=== PATIENT | male | born 1995 | race Caucasian/White ===

== ENCOUNTER 2020-03-30 22:47 | Emergency (ER) | payer SELFPAY ==
[~2020-03-30] VITALS: Ht 177.8 cm; Wt 79.4 kg
[~2020-03-30 22:47] MED LIST: IBUPROFEN600 MG ORAL
[2020-03-30 22:53] VITALS: BP 137/88
--- NOTE | 2020-03-30 22:54 | Emergency Room Report ---
History of Present Illness General Chief Complaint: To Be Triaged Source: Patient Present Illness HPI Is a 25-year-old male with no past medical history. He presents with chief complaint of medical clearance from police [employer]. When being arrested, he started complaining of shoulder pain and wrist pain after being arrested. He said the handcuffs is tight and he was pushed down. He complaining of pain in that area. No other trauma. A second complaint was that he was exposed to COVID-19. He said that he was in a hotel room with a friend who was tested positive 2 days ago. He has no symptoms. Allergies: Coded Allergies: No Known Allergies (Unverified , 07/07/15) COVID-19 Screening Contact w/high risk pt: No Recent Travel to affected area: No Experienced COVID-19 symptoms?: No Patient History Past Medical History: see triage record, old chart reviewed Past Surgical History: none Pertinent Family History: none Social History: Denies: smoking Immunizations: other Reviewed Nursing Documentation: PMH: Agreed; PSxH: Agreed Review of Systems Eye: Denies: eye pain, blurred vision ENT: Denies: ear pain, nose congestion, throat swelling Respiratory: Denies: cough, shortness of breath Cardiovascular: Denies: chest pain, palpitations Gastrointestinal: Denies: abdominal pain, diarrhea, nausea, vomiting Musculoskeletal: Reports: joint pain; Denies: back pain Skin: Denies: rash Neurological: Denies: headache, numbness Endocrine: Denies: increased thirst, increased urine Hematologic/Lymphatic: Denies: easy bruising All Other Systems: negative except mentioned in HPI Physical Exam Sp02 EP Interpretation: reviewed, normal General Appearance: well appearing, no apparent distress, alert Head: normocephalic, atraumatic Eyes: bilateral eye PERRL, bilateral eye EOMI ENT: hearing grossly normal, normal pharynx Neck: full range of motion, supple, no meningismus Respiratory: chest non-tender, lungs clear, normal breath sounds Cardiovascular #1: regular rate, rhythm, no murmur Gastrointestinal: normal bowel sounds, non tender, no mass, no organomegaly, no bruit, non-distended Musculoskeletal: back normal, normal range of motion, gait/station normal Psychiatric: mood/affect normal Medical Decision Making Diagnostic Impression: Primary Impression: Arthralgia Qualified Codes: M25.531 - Pain in right wrist; M25.532 - Pain in left wrist Additional Impression: Exposure to COVID-19 virus ER Course Patient presents with arthralgia. See no trauma. There is no evidence of any deformity. Patient has no symptoms of Covid. I see no need for testing. Status: unchanged Disposition: LAW ENFORCEMENT IN CUST Condition: Stable Additional Instructions: Follow-up with your doctor in 7 days. Return if worse. Lalo Carrasquillo MD Mar 30, 2020 22:53
[2020-03-30 23:00] VITALS: BP 132/74
== END 2020-03-30 23:00 ==
LOC: EMR 22:57
DX: M25.531 Pain in right wrist (principal); M25.532 Pain in left wrist; M25.519 Pain in unspecified shoulder
CPT/HCPCS: 99282

== ENCOUNTER 2020-08-12 16:45 | Emergency (ER) | payer SELFPAY ==
[~2020-08-12] VITALS: Ht 177.8 cm; Wt 77.1 kg
[2020-08-12] MEDS ORDERED: Acetaminophen 500mg (ES) tab ORAL ONE (17:00)
[2020-08-12] MEDS ORDERED: IMODIUM2 MG ORAL (17:03)
[2020-08-12] MEDS ORDERED: IBUPROFEN600 M1 ORAL (17:03)
[2020-08-12] MEDS ORDERED: TYLENOL EXTRA500 MG ORAL (17:03)
[2020-08-12 17:04] VITALS: BP 116/73
--- NOTE | 2020-08-12 17:15 | Emergency Room Report ---
History of Present Illness General Chief Complaint: Medical Clearance Source: Patient Present Illness HPI Disclaimer: Please note that this report is being documented using [employer] technology. This can lead to erroneous entry secondary to incorrect interpretation by the dictating instrument. HPI: 25-year-old male presents in police custody for medical clearance prior to incarceration. 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 Last use was yesterday. Uses regularly over the past 5 years. He is complaining of diffuse muscle aches and spasms. Reports nausea and abdominal cramping. Diarrhea earlier today. Denies fever or chills. Denies cough and congestion. Has not received medication prior to arrival. PMH: Substance abuse PSH: Reviewed Allergies: Reviewed Social Hx: Reviewed Allergies: Coded Allergies: No Known Allergies (Unverified , 07/07/15) COVID-19 Screening Contact w/high risk pt: No Recent Travel to affected area: No Experienced COVID-19 symptoms?: No COVID-19 Testing performed COUNCILMAN: No Nursing Documentation-PMH Hx Cardiac Problems: No Hx Hypertension: No Hx Pacemaker: No Hx Asthma: No Hx COPD: No Hx Diabetes: No Hx Cancer: No Hx Gastrointestinal Problems: No Hx Dialysis: No History Of Psychiatric Problem: No Hx Neurological Problems: No Hx Cerebrovascular Accident: No Hx Seizures: No Review of Systems All Other Systems: negative except mentioned in HPI Physical Exam Vital Signs Date Time Temp Pulse Resp B/P (MAP) Pulse Ox O2 Delivery O2 Flow Rate FiO2 08/12/20 16:48 98.4 87 18 116/73 (87) 98 Room Air General: Awake and alert, no acute distress HEENT: NC/AT. EOMI. Cardiovascular: RRR. S1 and S2 normal. No murmur appreciated Resp: Normal work of breathing. No cough, wheezing or crackles appreciated Abdomen: Abdomen is soft, nondistended. Nontender Skin: Intact. No abrasions, laceration or rash over the exposed skin MSK: Normal tone and bulk. Moving all extremities. No obvious deformity. Handcuffed behind his back. Diffuse tenderness palpation over all major muscle groups Neuro: Awake and alert. Mentating appropriately. No tremor Medical Decision Making Diagnostic Impression: Primary Impression: Withdrawal syndrome Additional Impression: Medical clearance for incarceration ER Course 25-year-old male presents for medical clearance prior to incarceration. Complaining of withdrawal symptoms and last use was over 24 hours ago. Arrives with stable vital signs. Will treat with clonidine and Tylenol and discharged with symptomatic medications. Is medically clear for booking. Last Vital Signs Date Time Temp Pulse Resp B/P (MAP) Pulse Ox O2 Delivery O2 Flow Rate FiO2 08/12/20 17:04 98.4 18 116/73 98 Room Air 08/12/20 16:48 87 Disposition: LAW ENFORCEMENT IN CUST Condition: Stable Scripts Ibuprofen* (MOTRIN*) 600 Mg Tablet 600 MG ORAL Q6H PRN for For Pain, #30 TAB 0 Refills Prov: Jorje Sifuentes MD 08/12/20 Acetaminophen* (TYLENOL EXTRA STRENGTH*) 500 Mg Tablet 500 MG ORAL Q8H PRN for Prn Headache/Temp > 101, #30 TAB 0 Refills Prov: Jorje Sifuentes MD 08/12/20 Loperamide HCl (Loperamide) 2 Mg Capsule 2 MG ORAL Q4H, #20 CAP 0 Refills Prov: Jorje Sifuentes MD 08/12/20 Referrals: NOT CHOSEN IPA/,REFERRING (PCP) [facility] Mikhail Villavicencio Comp. [facility] Psych ER - Peds ER - [facility] Intake Hotline - [facility] Departure Forms: Shelter Clearance Patient Instructions: Finding Treatment for Addiction Additional Instructions: Please follow-up with your primary care doctor in the next 1 to 3 days to discuss this emergency department visit and for reevaluation. If you have any new or worsening symptoms please return to the emergency department for reevaluation. Please note that this report is being documented using Tinyb[employer] technology. This can lead to erroneous entry secondary to incorrect interpretation by the dictating instrument. Jorje Sifuentes MD Aug 12, 2020 17:15
== END 2020-08-12 17:10 ==
LOC: EMR 16:56
DX: F11.23 Opioid dependence with withdrawal (principal); F15.23 Other stimulant dependence with withdrawal
CPT/HCPCS: 99282